=== PATIENT | female | born 1940 | race Caucasian/White ===

== ENCOUNTER → 2020-03-01 | Outpatient (CLI) | payer MEDICARE ==
[~2020-03-01] MED LIST: HOLD METFORMIN - RECEIVED CONTRAST 20 ML VIAL IV SCH; IOHEXOL 350 MG/ML 100 ML (OMNIPAQUE 350) VIAL IV ONE; NS 100 ML (IVPB) BAG IV ONE
[2020-03-01 08:10] LABS: CREATININE SERUM 1.07 MG/DL (0.60-1.30)
--- NOTE | 2020-03-01 10:44 | Diagnostic Imaging Report ---
EXAMINATION: PET/CT at 9:09 AM. 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 EXAMINATION: After intravenous administration of 15.84 mCi of F18-FDG, a series of overlapping emission and transmission PET images was obtained. In the coronal, transaxial and sagittal planes, the area imaged extended from the skull base through the upper thighs. PATIENT HEIGHT: 5' 3" WEIGHT: 138. BLOOD GLUCOSE LEVEL: 108. COMPARISON: There are no prior imaging studies available for comparison. FINDINGS: By history, the patient does have a diagnosis of carcinoma of the anterior hard palate. On the axial series of this exam, there is an area of slightly increased hypermetabolic activity along the anterior aspect of the hard palate just to the right of midline. This has a maximum SUV of 5.2 and may well correspond to the patient's diagnosis of malignancy. There is no other hypermetabolic activity to suggest the presence of malignancy. The CT images fail to show any sign of an acute abnormality. There are innumerable diverticula involving the sigmoid and descending colon but there is no evidence for acute diverticulitis. There is no sign of an aneurysm of the aorta but there is extensive atherosclerotic plaque throughout the aorta. There is a 2.3 x 2.7 cm hiatal hernia. The intracranial contents, where visualized, are unremarkable. IMPRESSION: 1. There is increased hypermetabolic activity along the anterior aspect of the hard palate just to the right of midline. This may well correspond to the patient's known diagnosis of malignancy in this area. 2. There is no other hypermetabolic activity to suggest the presence of malignancy. 3. There is no acute abnormality of the neck, chest, abdomen, or pelvis identified. 4. There is extensive diverticulosis of the sigmoid and descending colon without evidence for acute diverticulitis. Dictated by: Dictated on workstation # [id number]
--- NOTE | 2020-03-01 10:45 | Diagnostic Imaging Report ---
PROCEDURE: CT neck soft tissue with contrast. TECHNIQUE: Multiple contiguous axial images were obtained through the neck after the administration of contrast. Auto Exposure Controls were utilized during the CT exam to meet ALARA standards for radiation dose reduction. INDICATION: Carcinoma of the hard palate. The PET/CT exam performed prior to the study noted hypermetabolic activity along the anterior aspect of the hard palate just to the right of midline. This was felt to be consistent with patient's recent diagnosis of squamous cell carcinoma of the anterior hard palate. On this exam, there is no mass identified in this region. This area is partially obscured by dental hardware, however. Reportedly, there is also clinical concern regarding submental lymph node. There are a few small lymph nodes in each submandibular region. The largest of these is on the right measures 5.5 x 15.5 mm. This node is nonspecific in appearance but was not hypermetabolic on the PET/CT exam. There is no other mass or adenopathy involving the neck. The submandibular glands are symmetrical and within normal limits. The thyroid gland is partially obscured by streak artifact but does not appear to be enlarged and seems to be fairly homogeneous. There is atherosclerotic disease involving both carotid bifurcations, particularly on the left. There is no hemodynamically significant stenosis identified, however. The lung apices are clear. There are emphysematous changes involving both lungs. The bone windows are unremarkable for fracture or for destructive lesion. There is fairly severe degenerative disc and bony disease at C6-C7 and there does appear to be mild central stenosis with neural foraminal narrowing bilaterally at this level. The intracranial contents where visualized are unremarkable. IMPRESSION: 1. There is no evidence for an acute abnormality. 2. There is no definite mass identified along the anterior aspect of the hard palate to coincide with the patient's diagnosis of malignancy. There are a few small nodes in each submandibular region. These are nonspecific. 3. There is atherosclerotic disease involving both carotid bifurcations particularly on the left. There is no hemodynamically significant stenosis identified, but if further imaging is desired, then a carotid Doppler exam would be recommended. 4. There is degenerative disc and bony disease at C6-C7. Dictated by: Dictated on workstation # [id number]
== END ==
LOC: RAD 07:36
PROVIDERS: ATTEND Otolaryngology Otolaryngology/Facial Plastic Surgery
DX: C05.0 Malignant neoplasm of hard palate (principal); I65.23 Occlusion and stenosis of bilateral carotid arteries; M50.323 Other cervical disc degeneration at C6-C7 level; M89.9 Disorder of bone, unspecified; K57.30 Diverticulosis of large intestine without perforation or abscess without bleeding
CPT/HCPCS: 70491; 78815; 82565; 84520; A9552; 36415

== ENCOUNTER 2021-04-10 08:34 | Outpatient (RCR) | payer MEDICARE ==
[2021-04-10 09:21] LABS: BASOPHILS # (AUTO) 0.1 10^3/uL (0.0-0.1); BASOPHILS % (AUTO) 1 % (0-10); EOSINOPHILS # (AUTO) 0.1 10^3/uL (0.0-0.3); EOSINOPHILS % (AUTO) 1 % (0-10); HEMATOCRIT 40 % (35-52); HEMOGLOBIN 12.6 g/dL (11.5-16.0); LYMPHOCYTES # (AUTO) 8.7 10^3/uL (1.0-4.0); LYMPHOCYTES % (AUTO) 62 % (12-44); MEAN CORPUSCULAR HEMOGLOBIN 30 pg (25-34); MEAN CORPUSCULAR HGB CONC 31 g/dL (32-36); MEAN CORPUSCULAR VOLUME 96 fL (80-99); MEAN PLATELET VOLUME 9.7 fL (9.0-12.2); MONOCYTES # (AUTO) 0.8 10^3/uL (0.0-1.0); MONOCYTES % (AUTO) 5 % (0-12); NEUTROPHILS # (AUTO) 4.4 10^3/uL (1.8-7.8); NEUTROPHILS % (AUTO) 31 % (42-75); PLATELET COUNT 309 10^3/uL (130-400); WHITE BLOOD COUNT 14.1 10^3/uL (4.3-11.0)
[2021-04-10 09:38] LABS: BILIRUBIN,TOTAL 0.3 MG/DL (0.1-1.0); CALCIUM 9.5 MG/DL (8.5-10.1); CREATININE SERUM 1.07 MG/DL (0.60-1.30); POTASSIUM 4.8 MMOL/L (3.6-5.0); TOTAL PROTEIN 7.5 GM/DL (6.4-8.2)
== END 2021-06-02 | disposition home or self-care (01) ==
LOC: ONC 08:34
PROVIDERS: ATTEND Internal Medicine Hematology & Oncology
DX: C91.10 Chronic lymphocytic leukemia of B-cell type not having achieved remission (principal)
CPT/HCPCS: 80053; 83615; 85025; G0463; 99214

== ENCOUNTER → 2021-04-18 | Outpatient (CLI) | payer MEDICARE ==
[~2021-04-18] MED LIST changes: +CATHETER FLUSH 10 ML SYR IV PRN
--- NOTE | 2021-04-18 10:49 | Diagnostic Imaging Report ---
EXAMINATION: CT chest, abdomen and pelvis with intravenous contrast. TECHNIQUE: Multiple contiguous axial images were obtained through the chest, abdomen and pelvis after the uneventful administration of intravenous contrast. All CT scans use one or more of the following dose optimizing techniques: automated exposure control, MA and/or KvP adjustment based on patient size and exam type or iterative reconstruction. HISTORY: History of leukemia. COMPARISON: PET/CT on 03/01/2020. FINDINGS: CT CHEST: The heart size is within normal limits. No pericardial effusion is present. There is calcified aortic and coronary atherosclerotic plaque without aneurysm. Mildly prominent left axillary lymph nodes are visualized with the largest measuring 0.8 cm in short axis, previously measuring 0.7 cm. No lymphadenopathy is seen in the mediastinum or bilateral hilar regions. The thyroid has a normal appearance. Stable nodule in the left lung base measuring 0.9 cm. This did not show hypermetabolic activity on the prior PET/CT. No new pulmonary nodules are visualized. There are no focal areas of consolidation. No central endobronchial obstructing lesions are identified. There are no pleural effusions or pneumothorax. The osseous structures demonstrate no acute abnormalities. Subtle S-shaped scoliosis is seen in the thoracolumbar spine. CT ABDOMEN AND PELVIS: There is hepatic steatosis. Subtle micronodular contour of the liver is seen. No focal hepatic lesions are present. The portal vein is patent. The gallbladder is decompressed. No intra or extrahepatic biliary dilation is seen. The liver, spleen, pancreas, adrenal glands, and kidneys have a normal appearance. There is no pathologically enlarged mesenteric or retroperitoneal adenopathy. Small hiatal hernia is seen. The bowel loops are nondilated. Diverticulosis of the descending and sigmoid colon is seen without evidence of acute diverticulitis. There is no free fluid or free air. The osseous structures demonstrate no acute abnormalities. There is calcified aortic and biiliac atherosclerotic plaque without aneurysm. Ureters and bladder have a normal appearance. There is normal excretion of contrast on delayed images. There is no free air, loculated collection, or adenopathy in the pelvis. IMPRESSION: 1. Mildly prominent left axillary lymph nodes, the largest measuring 0.8 cm in short axis. This is similar in appearance to the prior exam. 2. No other lymphadenopathy is seen in the chest, abdomen and pelvis. 3. Stable nodule in the left lung base measuring 0.9 cm. No new suspicious nodules or focal consolidations. 4. No suspicious solid organ lesions in the abdomen and pelvis. No free fluid or free air. 5. Hepatic steatosis with micronodular contour of the liver suggestive of cirrhosis. Recommend correlation with LFTs. 6. Diverticulosis of the descending and sigmoid colon without evidence of acute diverticulitis. 7. Small hiatal hernia. Dictated by: Dictated on workstation # [id number]
== END ==
LOC: RAD 09:12
PROVIDERS: ATTEND Internal Medicine Hematology & Oncology
DX: K76.0 Fatty (change of) liver, not elsewhere classified (principal); K57.30 Diverticulosis of large intestine without perforation or abscess without bleeding; K44.9 Diaphragmatic hernia without obstruction or gangrene; C91.90 Lymphoid leukemia, unspecified not having achieved remission; R91.1 Solitary pulmonary nodule
CPT/HCPCS: 71260; 74177

== ENCOUNTER → 2022-01-19 | Outpatient (CLI) | payer MEDICARE, OTHER ==
[2022-01-19 13:56] LABS: ATYPICAL LYMPHOCYTES 18 %; LYMPHOCYTES % (MANUAL) 63 %; MONOCYTES % (MANUAL) 2 %; NEUTROPHILS % (MANUAL) 17 %; RBC MORPH NORMAL
[2022-01-19 13:57] LABS: PLATELET CLUMPS NONE SEEN
[2022-01-19 13:59] LABS: ABSOLUTE RETIC # 64 10e9/uL (24-90); RETICULOCYTE % 1.39 % (0.50-2.40)
== END | disposition home or self-care (01) ==
LOC: LABNPT 12:25
PROVIDERS: ATTEND Internal Medicine
DX: D72.829 Elevated white blood cell count, unspecified (principal)
CPT/HCPCS: 85007; 85045; 85055

== ENCOUNTER → 2022-01-30 | Outpatient (CLI) | payer MEDICARE, OTHER ==
--- NOTE | 2022-01-30 10:55 | Diagnostic Imaging Report ---
INDICATION: Abdominal pain KUB 10:46 AM Lung bases are clear. Bowel gas pattern is normal. There are no pathologic masses or calcifications. IMPRESSION: No acute abnormalities in the abdomen. Dictated by: Dictated on workstation # [id number]
== END ==
LOC: RAD 10:12
PROVIDERS: ATTEND Internal Medicine
DX: R10.9 Unspecified abdominal pain (principal)
CPT/HCPCS: 74018

== ENCOUNTER 2022-02-16 05:30 | Outpatient (CLI) | payer MEDICARE, OTHER ==
[~2022-02-16] VITALS: Ht 157.5 cm; Wt 68.6 kg
[2022-02-16] MEDS ORDERED: ROSU20TA32 PO (11:06)
[2022-02-16] MEDS ORDERED: LOSA100T57 PO (11:06)
[2022-02-16] MEDS ORDERED: CARV12.53 PO (11:06)
[2022-02-16] MEDS ORDERED: IMIP25TA4 PO (11:06)
== END 2022-02-16 11:15 | disposition home or self-care (01) ==
LOC: PREOP 05:30
PROVIDERS: ATTEND Internal Medicine
DX: Z01.818 Encounter for other preprocedural examination (principal); R10.13 Epigastric pain; R14.0 Abdominal distension (gaseous)

== ENCOUNTER 2022-02-21 07:03 | Day surgery (SDC) | payer MEDICARE, OTHER ==
--- NOTE | 2022-02-15 17:42 | HISTORY AND PHYSICAL ---
DATE OF SERVICE: EGD HISTORY AND PHYSICAL DATE OF ADMISSION: 02/21/2022. HISTORY OF PRESENT ILLNESS: The patient is an 81-year-old white female referred by Dr. Lee for epigastric and right upper quadrant abdominal pain. This happened rather abruptly about three weeks ago. It has been associated with bloating, but she normally does not have and has been persistent. She reports chronic constipation for a number of years, but it is controlled on MiraLax that she takes daily with no diarrhea issues. She denies melena or bright red blood per rectum. She reports some postprandial bloating, but food otherwise does not have any much impact on improving or worsening her discomfort. She denies associated dysphagia. She did report that her son was recently diagnosed with H. pylori whom she has had contact with. She denies any change in weight. 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 She sees Dr. Roblero for this. She has a history of coronary artery disease, had 2 stents placed in early 2019. He has had no subsequent symptoms since. She is now just on aspirin alone antiplatelet therapy. She reports that she did accomplish colonoscopy three years ago in [place] for which she reports no polyps. She has no past history for colon cancer. She is not aware of any family history for colon cancer. She also denies any other GI tract related malignancies. In review of electronic medical record, there is notation of a PET scan for squamous cell carcinoma of the anterior hard palate and an area that led up. She did not mention any of this during her evaluation. PAST SURGICAL HISTORY: Pertinent for hysterectomy, ovaries were left in 2001. SOCIAL HISTORY: She is a retired yard assistant, , reports 1 to 2 drinks per day for past 30+ pack year smoking history. Has one sister with breast cancer and in a postmenopausal. Mother of Alzheimer disease and father of congestive heart failure. REVIEW OF SYSTEMS: CONSTITUTIONAL: Denies night sweats, chills, fever, change in weight. GASTROINTESTINAL: As noted in the HPI. PULMONARY: Denies cough, wheezing or dyspnea at rest, stable dyspnea on exertion. CARDIOVASCULAR: Denies chest pain, orthopnea, PND, pedal edema or syncope. PHYSICAL EXAMINATION: GENERAL: Reveals a pleasant white female, appearing to be in mild distress secondary to epigastric discomfort. VITAL SIGNS: Blood pressure 110/60, weight 151, reportedly stable. HEENT: Unremarkable. Sclerae nonicteric. CHEST: Clear to auscultation. CARDIOVASCULAR: Reveals a regular rate and rhythm without significant murmur, S3 or S4. ABDOMEN: Soft, supple. There is epigastric pain without rebound or guarding. Antonio sign is negative. No mass or organomegaly noted. Bowel sounds positive. No distention noted. EXTREMITIES: Reveal no cyanosis, clubbing or edema. ASSESSMENT AND PLAN: For investigation of epigastric pain going on for three weeks and the patient on antiplatelet therapy in the form of aspirin, she is being set up for EGD evaluation next Saturday. It was advised that she avoid ibuprofen which she sometimes takes and hold her aspirin. She is more than two years out from stent placement with no recent reported cardiovascular problems. She will continue her other medications unchanged. As her symptoms are predominantly epigastric and she reports colonoscopy was unremarkable three years ago, we will hold off on performing colonoscopy at this time. I thank you for the referral of this pleasant lady. Job ID: [id number] DocumentID: [id number] Dictated Date: 02/15/2022 17:11:19 Trimmer Sorter Date: 02/15/2022 17:42:18 Dictated By: MISHA MENDIOLA MD
[~2022-02-21] VITALS: Ht 157.5 cm; Wt 68.6 kg
[~2022-02-21 07:03] MED LIST changes: +CARV12.53 PO; -CATHETER FLUSH 10 ML SYR IV PRN; -HOLD METFORMIN - RECEIVED CONTRAST 20 ML VIAL IV SCH; +IMIP25TA4 PO; -IOHEXOL 350 MG/ML 100 ML (OMNIPAQUE 350) VIAL IV ONE; +LOSA100T57 PO; -NS 100 ML (IVPB) BAG IV ONE; +ROSU20TA32 PO
[2022-02-21] MEDS ORDERED: LACTATED RINGERS 1,000 ML IV STA (07:12)
[2022-02-21] MEDS ORDERED: HURRICAINE EXT TUBE (BENZOCAINE) XX PRN (07:15)
[2022-02-21] MEDS ORDERED: proPOfol 200 MG/20 ML (DIPRIVAN) VIAL IV ONE (07:18)
[2022-02-21 07:20] VITALS: BP 183/91
--- NOTE | 2022-02-21 07:34 | Pre-Op Note & Conscious Sedat ---
Pre-Operative Progress Note Date H&P Reviewed: Feb 21, 2022 Time H&P Reviewed: 07:25 History & Physical: H&P Reviewed, Patient Examed, No changes noted Pre-Op Diagnosis: epigastric pain abdominal bloating Conscious Sedation Pre-Proced ASA Score 2 For ASA 3 and 4: Consider anesthesia and medical clearance. Also, for patients with a history of failed moderate sedation consider anesthesia. Airway Lungs Heart ASA score ASA 1: a normal healthy patient ASA 2: a patient with a mild systemic disease (mid diabetes, controlled hypertension, obesity ASA 3: a patient with a severe systemic disease that limits activity (angina, COPD, prior Myocardial infarction) ASA 4: a patient with an incapacitating disease that is a constant threat to life (CHF, renal failure) ASA 5: a moribund patient not expected to survive 24 hrs. (ruptured aneurysm) ASA 6: a declared brain- patient whose organs are being harvested. For emergent operations, add the letter E after the classification Mallampati Classification Grade 2 Sedation Plan Analgesia, Amnesia, Plan communicated to team members, Discussed options with patient/fam, Discussed risks with patient/fam The patient is an appropriate candidate to undergo the planned procedure, sedation, and anesthesia. The patient immediately re-assessed prior to indication. MISHA MENDIOLA MD Feb 21, 2022 07:34
[2022-02-21 07:55] VITALS: BP 140/63
--- NOTE | 2022-02-21 07:58 | Anesthesia-General Post-Op ---
MAC Patient Condition Mental Status/LOC: Same as Preop Cardiovascular: Satisfactory Nausea/Vomiting: Absent Respiratory: Satisfactory Pain: Controlled Complications: Absent Post Op Complications Complications None Follow Up Care/Instructions Patient Instructions None needed. Anesthesiology Discharge Order Discharge Order Patient is doing well, no complaints, stable vital signs, no apparent adverse anesthesia problems. No complications reported per nursing. DRISS VICTORIA CRNA Feb 21, 2022 07:58
[2022-02-21 08:00] VITALS: BP 136/64
--- NOTE | 2022-02-21 08:01 | Progress Note-Post Operative ---
Post-Procedure Note Physician (s)/Wringer Operator (s) Physician MISHA MENDIOLA MD Pre-Procedure Diagnosis Pre-Procedure Diagnosis: epigastric pain abdominal bloating Post-Procedure Diagnosis Post-operative diagnosis: antral gastritis with 1-2 cm HH no erosive esophagitis MISHA MENDIOLA MD Feb 21, 2022 08:01
[2022-02-21 08:30] VITALS: BP 174/85
[2022-02-21 08:45] VITALS: BP 174/85
--- NOTE | 2022-02-22 04:10 | OPERATIVE REPORT ---
DATE OF SERVICE: EGD SUMMARY PROCEDURES DONE FOR EVALUATION: Epigastric pain, bloating, an individual on antiplatelet therapy with previous history of coronary stents as well as exposure to an individual with H. pylori. DESCRIPTION OF PROCEDURE: The patient was placed in the left lateral decubitus position. The endoscope was inserted in the oral cavity and under direct visualization, esophagus was intubated. Endoscope was passed down the esophagus through stomach and second portion of the duodenum. The careful inspection was made as the endoscope was withdrawn. FINDINGS: The epiglottis, true and false vocal folds, arytenoids aperture and posterior pharynx were unremarkable. Proximal, mid and distal esophagus were unremarkable with no evidence of rings, webs stricture formation. A small 1 to 2 cm hiatal hernia was noted. No evidence for Monteiro's was noted. The cardia and fundus of stomach were unremarkable. There are patchy areas of antral erythema noted without erosion or ulceration. The pylorus, the duodenal bulb and second portion of duodenum were unremarkable with no evidence for peptic ulcer disease and normal villous appearing architecture. ASSESSMENT AND PLAN: 1. Mild antral gastritis was present, so biopsy was obtained and submitted for Helicobacter and histopathology evaluation. 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 I would advise proton pump inhibitor therapy for the patient due to her history of coronary artery disease and stent placement in need of ongoing antiplatelet therapy. 2. Small hiatal hernia is present without evidence for erosive esophagitis or Monteiro's change. 3. The patient was concerned that left upper lumbar pain that radiates into the thigh might have been GI in etiology. Discussed that it sounded more like lumbar radiculopathy. She has apparently seen a pain specialist in the past. She reports no weakness bowel or bladder control problems. I thank you for the referral of this pleasant lady. CC: Primary Care Provider, - otf, unable to deliver. Job ID: [id number] DocumentID: [id number] Dictated Date: 02/21/2022 17:28:10 Worksite Wellness Practitioner Date: 02/22/2022 02:42:05 Dictated By: MISHA MENDIOLA MD [facility]
== END 2022-02-21 08:50 | disposition home or self-care (01) ==
LOC: ENDO 07:03
PROVIDERS: ATTEND Internal Medicine
DX: K29.60 Other gastritis without bleeding (principal); K44.9 Diaphragmatic hernia without obstruction or gangrene; F17.200 Nicotine dependence, unspecified, uncomplicated

== ENCOUNTER 2023-02-28 07:21 | Day surgery (SDC) | payer MEDICARE, OTHER ==
[2023-02-28] VITALS (8 sets, daily range): BP systolic 129–176; BP diastolic 59–94
[~2023-02-28] VITALS: Ht 160 cm; Wt 67.8 kg
[~2023-02-28 07:21] MED LIST changes: +ASCO500C18 PO; +ASPI-999 PO; +CHOL1LIQ MC; +GLUC100016 PO; -LOSA100T57 PO; +LOSA100T58 PO; -ROSU20TA32 PO; +ROSU20TA73 PO; +UBID400C8 PO; +VITA1CAP PO
[2023-02-28] MEDS ORDERED: ceFAZolin INJECTION 2,000 MG in NS (IVPB) 50 ML 50 ML IV ONE (07:30)
[2023-02-28] MEDS ORDERED: LIDOCAINE 1% INJ 10 ML VIAL INJ ONE (08:00)
[2023-02-28] MEDS: LACTATED RINGERS 1,000 ML 1,000 ML IV PRN ×2 (08:18→12:46)
--- NOTE | 2023-02-28 09:44 | Diagnostic Imaging Report ---
INDICATION: Left breast carcinoma. Patient presents for left breast needle localization. DETAILS OF THE PROCEDURE: The patient was brought to the mammography suite and placed in a chair in a sitting upright position. The left breast was positioned craniocaudal. Tomographic and stereotactic imaging of the left breast was performed. All images were viewed on a dedicated workstation. The superior left breast was then prepped and draped in the usual sterile fashion. A small amount of 1% lidocaine was utilized for local anesthesia. The localizer needle was advanced from a craniocaudal approach and placed per tomographic and stereotactic coordinates. A hookwire was then deployed and the needle was removed. Followup 2D CC and lateral medial mammography was performed on dedicated mammographic equipment. The hookwire was noted in good position adjacent to the biopsy clip in the upper outer left breast. The hookwire was affixed to the patient's skin. The patient tolerated the procedure well and was sent to Same Day Surgery in satisfactory condition. IMPRESSION: Successful hookwire localization of the marker clip in the upper outer left breast at mid depth utilizing tomographic and stereotactic mammographic imaging. Dictated by: Dictated on workstation # [id number]
[2023-02-28] MEDS ORDERED: proPOfol INJECTION 200 MG/20 ML VIAL IV ONE (10:04)
[2023-02-28] MEDS ORDERED: ONDANSETRON INJECTION 4 MG/2 ML (SDV) ONE (10:04)
[2023-02-28] MEDS ORDERED: LIDOCAINE PF 2% 5 ML VIAL ONE (10:04)
[2023-02-28] MEDS ORDERED: dexAMETHasone INJ 10 MG/ML 1 ML VIAL ONE (10:04)
[2023-02-28] MEDS ORDERED: MIDAZOLAM INJ 2 MG/2 ML VIAL ONE (10:04)
[2023-02-28] MEDS ORDERED: fentaNYL INJECTION 100 MCG/2 ML VIAL ONE (10:04)
--- NOTE | 2023-02-28 10:17 | Progress Note-Pre Operative ---
Pre-Operative Progress Note Date H&P Reviewed: Feb 28, 2023 Time H&P Reviewed: 10:15 History & Physical: H&P Reviewed, Patient Examed, No changes noted Pre-Operative Diagnosis: Left breast DCIS SERGEY BARAHONA APRN Feb 28, 2023 10:17
[2023-02-28] MEDS ORDERED: LIDOCAINE/EPI 1%-1:200,000 (XYLOCAINE) 30 ML VIAL ONE ×2 (10:18→12:24)
[2023-02-28] MEDS ORDERED: HYDR-3817 PO (10:19)
--- NOTE | 2023-02-28 10:20 | Discharge Inst-Surgical ---
D/C Lap Instructions-KIDO Reconcile Patient Problems Problems Reviewed?: Yes New, Converted, or Re-Newed RX: RX on Chart Follow Up Appt in 2 weeks Activity as tolerated No driving for 24 hours No driving while on pain medications Incentive Spirometry use every 2 hours while awake Regular Diet Symptoms to Report: Fever over 101 degree F, Nausea/Vomiting Infection Signs and Symptoms to report: Increased redness, Foul odor of wound, Increased drainage Bathing instructions: May shower Operative Area Clean/Dry; Keep incision clean/dry If any problems/questions: Contact your physician or go to Emergency Room SERGEY BARAHONA APRN Feb 28, 2023 10:20
[2023-02-28] MEDS ORDERED: morphine INJ 10 MG/ML 1ML (SYR OR VIAL) IVP PRN (10:30)
[2023-02-28] MEDS ORDERED: ACETAMINOPHEN 325 MG TABLET PO PRN (10:30)
[2023-02-28] MEDS ORDERED: HYDROcodone/ACETAMINOPHEN 5 MG/325 MG TABLET PO ONE (10:30)
[2023-02-28] MEDS ORDERED: ONDANSETRON INJECTION 4 MG/2 ML (SDV) IVP PRN ×2 (10:30→14:00)
[2023-02-28] MEDS ORDERED: LIDOCAINE/EPI 1%-1:200,000 (XYLOCAINE) 30 ML VIAL INJ ONE ×2 (12:14→12:35)
--- NOTE | 2023-02-28 13:01 | Progress Note-Post Operative ---
Post-Operative Progess Note Surgeon (s)/Student Specialist (s) Surgeon NEEL QUIGLEY MD Student Specialist: marta sweeney [employer] VICE PRESIDENT Pre-Operative Diagnosis Left breast DCIS Post-Operative Diagnosis same Procedure & Operative Findings Date of Procedure 02/28/23 Procedure Performed/Findings needle localization left breast lumpectomy with complex closure (4cm). Anesthesia Type general LMA with local Estimated Blood Loss Estimated blood loss (mL): minimal Specimens/Packing Specimens Removed left breast mass. NEEL QUIGLEY MD Feb 28, 2023 13:01
[2023-02-28] MEDS ORDERED: SEVOFLURANE (ULTANE) 15 ML INHAL SOLN ONE (13:39)
--- NOTE | 2023-02-28 13:51 | Anesthesia-General Post-Op ---
General Patient Condition Mental Status/LOC: Same as Preop Cardiovascular: Satisfactory Nausea/Vomiting: Absent Respiratory: Satisfactory Pain: Controlled Complications: Absent Post Op Complications Complications None Follow Up Care/Instructions Patient Instructions None needed. Anesthesia/Patient Condition Patient Condition Patient is doing well, no complaints, stable vital signs, no apparent adverse anesthesia problems. No complications reported per nursing. CARLOS WEBER CRNA Feb 28, 2023 13:51
[2023-02-28] MEDS ORDERED: fentaNYL INJECTION 100 MCG/2 ML VIAL IVP ONE (14:00)
--- NOTE | 2023-02-28 14:53 | Diagnostic Imaging Report ---
INDICATION: Left breast carcinoma, status post lumpectomy. Specimen radiograph was submitted. The hookwire as well as the biopsy marker clip are located within the specimen. A marker clip is located at coordinate F7. There are numerous microcalcifications located at coordinate E7 and 8. IMPRESSION: Specimen radiograph, as described. Dictated by: Dictated on workstation # [id number]
--- NOTE | 2023-02-28 19:55 | OPERATIVE REPORT ---
DATE OF SERVICE: 02/28/2023 ATTENDING PRIMARY CARE PHYSICIAN: Rajesh Lee M.D. 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 with initial positive posteromedial aspect breast specimen PROCEDURE: needle localization excisional bx left breast, excisional bx left breast SURGEON: Fidencio PLANNING INTERN: Kvng Gloria APRN ANESTHESIA: general LMA with local EBL: minimal DISPOSITION: patient tolerated well INDICATIONS: The patient is an 82-year-old female referred over to us for a biopsy-proven left breast ductal carcinoma in situ. She underwent a screening mammogram on 01/14/2023, which did show a breast calcification area at the superior and lateral left breast, 6 cm from the nipple areolar complex at approximately 2 o'clock. 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 The patient does have a history of a low-grade chronic lymphocytic leukemia, stage 0 and has been seeing Oncology for this. The patient reports that she did have a previous left breast biopsy in 1997. She does have a strong family history of breast cancer with 3 sisters having the disease. She has been getting yearly mammograms at age 41; however, does not do regular breast self-examinations. She does not report any breast asymmetries or dimpling. No abnormal nipple discharge. She has been 3 times and given 2 live births and 1 miscarriage. She started menses at around age 14 and menopause at around 46 and did use oral contraceptive pills for approximately 9 years. One other risk factor include smoking approximately 50 pack years. DESCRIPTION OF PROCEDURE: The patient was brought to the operating room, laid supine on the table. After adequate IV pain and sedative medications and general laryngeal mask airway intubation, the chest and neck and upper extremity were prepped and draped in standard surgical fashion. A 0.5% Marcaine with epinephrine was then used to anesthetize the overlying skin to the previously placed hook wire as well as the surrounding skin and subcutaneous tissue. The guidewire was then cut shorter with a wire tinner. A crescent-shaped skin incision was then made using a #15 blade. The wire was then brought into the open incision site. We then proceeded with dissection of the subcutaneous fat using electrocautery. We then proceeded to place Anshul clamps around the wire and proceeded to core out all of the breast tissue surrounding the hook guidewire needle using electrocautery. We proceeded in this manner using several Anshul clamps. The area in question was identified with no hard palpable masses or any discrete masses. This was completely dissected out until a normal palpable breast tissue was identified using a cautery. The specimen was then sent for radiology as well as to pathology. Good hemostasis was observed. The wound was then irrigated with sterile water and the breast tissue and skin were then closed in a complex manner with the total size approximately 4 cm in size. Breast tissue was then reapproximated loosely using 3-0 Vicryl interrupted sutures. The subcutaneous tissue was then reapproximated with the same suture in an interrupted manner. The skin was closed using 4-0 Monocryl running subcuticular suture. Wound was then cleaned and covered with Dermabond. The patient tolerated the procedure well. We will recommend a breast support both day and night for the next 2 weeks. She was instructed to do all her normal activities of daily living; however, do no heavy lifting or exertion for the next 2 weeks. She is also instructed to keep the area clean and dry and to not soak the wound in water. Job ID: [id number] DocumentID: [id number] Dictated Date: 02/28/2023 12:54:36 Executive Candidate Developer Date: 02/28/2023 19:53:00 Dictated By: MD MARK BLUE
--- NOTE | 2023-02-28 20:19 | OPERATIVE REPORT ---
DATE OF SERVICE: 02/28/2023 ATTENDING PRIMARY CARE PHYSICIAN: Rajesh Lee MD PREOPERATIVE DIAGNOSIS: Left breast ductal carcinoma in situ with intraoperative positive margin along the medial and posterior aspect. POSTOPERATIVE DIAGNOSES: Left breast ductal carcinoma in situ with intraoperative positive margin along the medial and posterior aspect. PROCEDURE: Reexcision left breast ductal carcinoma in situ with complex flap closure, 6 x 6 cm in size. SURGEON: Neel Quigley MD INFORMATION TECHNOLOGY PROFESSOR: Kvng Gloria APRN ANESTHESIA: General laryngeal mask airway with local. ESTIMATED BLOOD LOSS: Minimal. FINDINGS: Negative margins by frozen section. DISPOSITION: The patient tolerated the procedure well. INDICATIONS: The patient is an 82-year-old female who underwent annual mammogram, was found to have a cluster of calcifications in the left breast more in the upper outer quadrant at approximately 2 o'clock. She underwent stereotactic biopsy and this did come back as a ductal carcinoma in situ. She underwent preoperative placement of hook. We then proceeded with an excisional biopsy and sent the specimen to radiology as well as to pathology where the report indicated positive margin along the medial and posterior aspect. DESCRIPTION OF PROCEDURE: Under the same sterile conditions, we then proceeded with reexcision of the lesion. Using Anshul clamps, the medial and posterior aspect of the left breast was then clamped. We then proceeded with excision of this tissue in a systematic fashion using electrocautery. There was some fibrocystic changes identified and we did excise to a normal-appearing breast tissue. We proceeded again in the medial and posterior fashion and the specimen was sent to pathology. Good hemostasis was achieved using electrocautery. The wound was then closed in complex manner in a layered fashion. The breast tissue was then reapproximated using 3-0 Vicryl interrupted sutures. Subcutaneous tissue was then reapproximated with the same suture in an interrupted manner and the skin was closed using 4-0 Monocryl running subcuticular suture. Wound was then cleaned and covered with Dermabond. The patient tolerated the procedure well. We will await the final pathology results. She will also be instructed to continue to wear supportive garments for the next 2 weeks, both day and night and to 19 hyperextended and the arms. She is also instructed to do no heavy lifting or exertion for the next 2 weeks. Job ID: [id number] DocumentID: [id number] Dictated Date: 02/28/2023 13:42:44 Tire Mold Tester Date: 02/28/2023 20:17:00 Dictated By: NEEL QUIGLEY MD
== END 2023-02-28 15:05 | disposition home or self-care (01) ==
LOC: RAD 07:21
PROVIDERS: ATTEND Surgery
DX: D05.12 Intraductal carcinoma in situ of left breast (principal)
CPT/HCPCS: 19120; 19281; 19301; 76098; 87081; A4648